=== PATIENT | male | born 1960 | race Caucasian/White ===

== ENCOUNTER 2024-05-22 13:56 | Outpatient (CLI) | payer OTHER ==
[~2024-05-22 13:56] MED LIST: CIPRO500 MG PO; LEVSIN/SL0.125 MG SL
== END 2024-05-22 14:01 | disposition home or self-care (01) ==
LOC: MRI 13:56
PROVIDERS: ATTEND Psychiatry & Neurology Neurology
DX: G31.84 Mild cognitive impairment of uncertain or unknown etiology (principal)
CPT/HCPCS: 70551

== ENCOUNTER 2024-05-27 17:48 | Inpatient (IN) | payer OTHER ==
[2024-05-27 20:27] VITALS: BP 118/69; O2SAT 98
[2024-05-27] MEDS ORDERED: ENALAPRILAT DIHYDRATE 1.25 MG/ML VIAL IV PRN (22:00)
[2024-05-27] MEDS ORDERED: 0.9 % SODIUM CHLORIDE 1,000 ML IV SCH (22:00)
[2024-05-27] MEDS ORDERED: PANTOPRAZOLE SODIUM 80 MG in 0.9 % SODIUM CHLORIDE 100 ML IV SCH (22:30)
[2024-05-27 23:49] LABS: MEAN CELL VOLUME 88.2 fL (80.0-100.00); MEAN CORPUSCULAR HGB CONC 34.9 g/dl (32.0-36.0); PLATELET COUNT 275 K/uL (150-450); RED BLOOD COUNT 2.84 M/uL (4.00-6.00); RED CELL DISTRIBUTION WIDTH 13.1 % (11.5-14.5)
[2024-05-27 23:55] LABS: INR 1.1; PARTIAL THROMBOPLASTIN TIME 27.8 SECONDS (22.0-34.0); PROTHROMBIN TIME 11.9 SECONDS (9.0-11.5)
[2024-05-28 00:05] LABS: ALBUMIN 3.1 gm/dL (3.4-5.0); BILIRUBIN TOTAL 0.42 mg/dL (0.3-1.2); CALCIUM 8.3 mg/dL (8.5-10.1); CREATININE SERUM 1.55 mg/dL (0.70-1.30); GFR 45.22; GLOBULINA 2.6 G/DL (2.4-3.5); POTASSIUM 3.37 mEq/L (3.5-5.1); TOTAL PROTEIN 5.7 gm/dL (6.4-8.2)
[2024-05-28 00:07] LABS: HEMOGLOBIN 8.7 g/dL (13-16.00); MEAN CORPUSCULAR HEMOGLOBIN 30.6 pg (27.00-32.0)
[2024-05-28 00:12] VITALS: BP 104/59; O2SAT 100
[2024-05-28 08:00] VITALS: BP 118/55; O2SAT 98
[2024-05-28] MEDS ORDERED: METOPROLOL SUCCINATE 25 MG TAB.SR.24H PO SCH (09:00)
[2024-05-28] MEDS ORDERED: ATORVASTATIN CALCIUM 10 MG TABLET PO SCH (09:00)
[2024-05-28] MEDS ORDERED: FUROsemide 20 MG/2 ML VIAL IV SCH (12:45)
[2024-05-28] MEDS ORDERED: MAGNESIUM SULFATE/D5W 1GM/100ML PIGGYBAG IV NR (13:00)
[2024-05-28 13:28] LABS: ABG PH 7.476 (7.35-7.45); ABG PO2 107.2 mmHg (80-100); ABG pCO2 31.7 mmHg (35-45); BASE EXCESS 0.2 mmol/l; BICARBONATE 22.9 mmol/l (23-25); SaO2 98.5 %; Tco2 23.8 mmol/l
[2024-05-28 13:31] LABS: HEMATOCRIT 26.7 % (39.0-48.0); HEMOGLOBIN 9.4 g/dL (13-16.00); MEAN CELL VOLUME 86.4 fL (80.0-100.00); MEAN CORPUSCULAR HEMOGLOBIN 30.4 pg (27.00-32.0); MEAN CORPUSCULAR HGB CONC 35.2 g/dl (32.0-36.0); PLATELET COUNT 289 K/uL (150-450); RED BLOOD COUNT 3.09 M/uL (4.00-6.00); RED CELL DISTRIBUTION WIDTH 13.8 % (11.5-14.5)
[2024-05-28 13:31] LABS: o2 21 %
[2024-05-28 13:32] LABS: allen test SATISFACTORY; puncture site RADIAL LEFT
[2024-05-28 14:05] LABS: FERRITIN 231.8 NG/ML (26-388)
[2024-05-28 14:44] LABS: FOLIC ACID 14.12 ng/ml (4.78-20)
[2024-05-28 16:00] VITALS: BP 144/75; O2SAT 98
[2024-05-28] MEDS ORDERED: POTASSIUM CHLORIDE IN WATER 40 MEQ/100 ML PIGGYBAG IV NR (16:00)
[2024-05-29 00:10] VITALS: BP 128/66; O2SAT 99
[2024-05-29 03:31] LABS: HEMOGLOBIN 11.5 g/dL (13-16.00); MEAN CELL VOLUME 87.1 fL (80.0-100.00); MEAN CORPUSCULAR HEMOGLOBIN 30.4 pg (27.00-32.0); MEAN CORPUSCULAR HGB CONC 34.9 g/dl (32.0-36.0); PLATELET COUNT 271 K/uL (150-450); RED BLOOD COUNT 3.78 M/uL (4.00-6.00); RED CELL DISTRIBUTION WIDTH 13.6 % (11.5-14.5)
[2024-05-29 08:00] VITALS: BP 118/75; O2SAT 97
[2024-05-29] MEDS ORDERED: SODIUM CHLORIDE 0.45 % 1,000 ML IV SCH (08:45)
[2024-05-29 13:02] LABS: CALCIUM 7.7 mg/dL (8.5-10.1); CREATININE SERUM 1.21 mg/dL (0.70-1.30); GFR 60.18; MAGNESIUM 2.3 mg/dL (1.8-2.4); POTASSIUM 3.52 mEq/L (3.5-5.1)
[2024-05-29 13:11] LABS: ob POSITIVE (NEGATIVE)
[2024-05-29 13:31] LABS: PHOSPHOROUS 1.8 mg/dL (2.5-4.9)
[2024-05-29] MEDS ORDERED: PEG3350/SOD SULF,BICARB,CL/KCL 4,000 ML GALLON PO NR (15:00)
[2024-05-29 17:00] VITALS: BP 113/73; O2SAT 98
[2024-05-30] VITALS: BP 110/73; O2SAT 97
[2024-05-30 07:26] LABS: HEMATOCRIT 29.5 % (39.0-48.0); HEMOGLOBIN 10.5 g/dL (13-16.00); MEAN CELL VOLUME 86.8 fL (80.0-100.00); MEAN CORPUSCULAR HEMOGLOBIN 30.8 pg (27.00-32.0); MEAN CORPUSCULAR HGB CONC 35.5 g/dl (32.0-36.0); PLATELET COUNT 262 K/uL (150-450); RED CELL DISTRIBUTION WIDTH 14.1 % (11.5-14.5)
[2024-05-30 09:12] VITALS: BP 104/67; O2SAT 95
[2024-05-30] MEDS ORDERED: MIDAZOLAM HCL 2 MG/2 ML VIAL IV STA (12:01)
[2024-05-30] MEDS ORDERED: FentaNYL CITRATE/PF 50MCG/ML 2ML VIAL IJ STA (12:01)
[2024-05-30 15:35] VITALS: BP 116/75; O2SAT 95
[2024-05-30] MEDS ORDERED: MORPHINE SULFATE 2 MG/ML CARTRIDGE IV PRN (20:00)
[2024-05-30 21:07] LABS: HEMATOCRIT 28.6 % (39.0-48.0); HEMOGLOBIN 10.1 g/dL (13-16.00); MEAN CELL VOLUME 86.5 fL (80.0-100.00); MEAN CORPUSCULAR HEMOGLOBIN 30.6 pg (27.00-32.0); MEAN CORPUSCULAR HGB CONC 35.4 g/dl (32.0-36.0); PLATELET COUNT 256 K/uL (150-450); RED BLOOD COUNT 3.31 M/uL (4.00-6.00); RED CELL DISTRIBUTION WIDTH 14.2 % (11.5-14.5)
[2024-05-31 00:14] VITALS: BP 100/57; O2SAT 95
[2024-05-31] MEDS ORDERED: LEVSIN/SL0.125 MG SL (13:41)
[2024-05-31] MEDS ORDERED: ATORVASTATIN CA20 MG PO (13:44)
[2024-05-31] MEDS ORDERED: METOPROLOL SUCC50 MG PO (13:45)
[2024-05-31] MEDS ORDERED: IRBESARTAN-HCT1 EACH PO (13:45)
[2024-05-31] MEDS ORDERED: TRAM1TAB98 PO (13:46)
[2024-05-31] MEDS ORDERED: PROTONIX40 MG PO (13:48)
[2024-05-31] MEDS ORDERED: PEPCID AC20 MG PO (13:49)
== END 2024-05-31 17:02 | disposition home or self-care (01) | DRG 394 ==
LOC: SURH 17:48 → SURG 17:48
PROVIDERS: ADMIT Internal Medicine; ATTEND Internal Medicine
PROC: 30233L1 Transfusion of Nonautologous Fresh Plasma into Peripheral Vein, Percutaneous Approach (ICD-10-PCS; principal; 2024-05-28)
PROC: 30233N1 Transfusion of Nonautologous Red Blood Cells into Peripheral Vein, Percutaneous Approach (ICD-10-PCS; 2024-05-28)
PROC: 0DBK8ZZ Excision of Ascending Colon, Via Natural or Artificial Opening Endoscopic (ICD-10-PCS; 2024-05-30)
PROC: 0DJ08ZZ Inspection of Upper Intestinal Tract, Via Natural or Artificial Opening Endoscopic (ICD-10-PCS; 2024-05-30)
DX: D12.2 Benign neoplasm of ascending colon (principal); K62.5 Hemorrhage of anus and rectum; K44.9 Diaphragmatic hernia without obstruction or gangrene; K20.90 Esophagitis, unspecified without bleeding